=== PATIENT | male | born 1990 | race Caucasian/White ===

== ENCOUNTER → 2016-06-03 | Outpatient (CLI) | payer OTHER ==
--- NOTE | 2016-06-03 11:43 | DI ---
EXAM: HAND RIGHT 3 VIEW COMPARISON: None available. HISTORY:Previous boxer fracture to right hand two years ago. ITS.REASON: DIAGNOSTIC TESTING . FINDINGS: There is an old fracture deformity of the fifth metacarpal at the distal metadiaphysis. The articulating surfaces are smooth. There is no evidence for acute fracture, subluxation, or dislocation. The distal radius and ulna, carpal bones, and remainder of the metacarpals and phalanges are intact. IMPRESSION: Old fracture deformity of the distal metadiaphysis of the fifth metacarpal. Otherwise unremarkable. LOCATION OF DICTATION: [facility] [place] .
== END ==
LOC: IMA 10:05
DX: Z02.89 Encounter for other administrative examinations (principal)